=== PATIENT | female | born 1950 | race Caucasian/White ===

== ENCOUNTER → 2016-05-02 | Outpatient (CLI) | payer MEDICARE, OTHER ==
--- NOTE | 2016-05-02 12:29 | REP ---
Chest two views HISTORY: Bronchitis Comparison: 05/08/2013 The lungs are clear. The heart is normal in size. The pulmonary vasculature is normal in appearance. Degenerative change is present in the thoracic spine. IMPRESSION: No acute disease.
== END ==
LOC: M CLY 11:51
PROVIDERS: ATTEND Family Medicine
DX: J40 Bronchitis, not specified as acute or chronic (principal)
CPT/HCPCS: 71020; 94640; G0463

== ENCOUNTER → 2016-08-09 | Outpatient (REF) | payer MEDICARE, OTHER | LOC: M SFHCCLAY 08:25 | PROVIDERS: ATTEND Nurse Practitioner Family | DX: Z23 Encounter for immunization (principal); E11.9 Type 2 diabetes mellitus without complications; E78.4 Other hyperlipidemia ==

== ENCOUNTER → 2016-11-05 | Outpatient (REF) | payer MEDICARE, OTHER | LOC: M SFHCCLAY 12:00 | PROVIDERS: ATTEND Nurse Practitioner Family | DX: R19.7 Diarrhea, unspecified (principal) ==

== ENCOUNTER → 2017-01-16 | Outpatient (REF) | payer MEDICARE, OTHER | LOC: M SFHCCLAY 08:53 | PROVIDERS: ATTEND Nurse Practitioner Family | DX: E11.8 Type 2 diabetes mellitus with unspecified complications (principal); E78.4 Other hyperlipidemia ==

== ENCOUNTER → 2017-06-10 | Outpatient (REF) | payer MEDICARE, OTHER ==
[2017-06-10 17:26] LABS: ALBUMIN 3.5 GM/DL (3.2-5.2); ALBUMIN/GLOBULIN RATIO 0.85 (1.00-1.93); ALKALINE PHOSPHATASE 84 U/L (45-117); ALT/SGPT 31 U/L (12-78); ANION GAP 7 MEQ/L (8-16); AST/SGOT 20 U/L (7-37); BILIRUBIN,TOTAL 0.5 MG/DL (0.2-1.0); BLOOD UREA NITROGEN 14 MG/DL (7-18); CALCIUM LEVEL 9.5 MG/DL (8.8-10.2); CARBON DIOXIDE LEVEL 32 MEQ/L (21-32); CHLORIDE LEVEL 100 MEQ/L (98-107); CHOLESTEROL LEVEL 248 MG/DL (<200); CHOLESTEROL RISK RATIO 6.048 (<5); CREATININE FOR GFR 0.78 MG/DL (0.55-1.30); GLOMERULAR FILTRATION RATE > 60.0 (>45); GLUCOSE, FASTING 292 MG/DL (70-100); HDL CHOLESTEROL 41 MG/DL (>40); LDL CHOLESTEROL 172.6 MG/DL (<100); NON-HDL-C 207 MG/DL; POTASSIUM SERUM 4.2 MEQ/L (3.5-5.1); SODIUM LEVEL 139 MEQ/L (136-145); TOTAL PROTEIN 7.6 GM/DL (6.4-8.2); TRIGLYCERIDES LEVEL 172 MG/DL (<150)
[2017-06-10 17:39] LABS: TOTAL 25(OH) VITAMIN D 23.7 NG/ML (30.0-100.0)
[2017-06-10 17:52] LABS: ESTIMATED AVERAGE GLUCOSE 326 MG/DL (60-110)
[2017-06-10 19:13] LABS: MALB URINE SIEMENS 77.3 MG/L; MAU/CREAT RATIO 69.6 MCG/MG (0.0-30.0); TOTAL PROTEIN,RANDOM URINE 36.9 MG/DL (0.0-12.0)
[2017-06-10 19:16] LABS: HEMATOCRIT 42.2 % (36.0-47.0); MEAN CORPUSCULAR HGB CONC 30.8 g/dl (32.0-36.5); MEAN CORPUSCULAR VOLUME 90.9 fl (80.0-96.0); PLATELET COUNT, AUTOMATED 153 10^3/uL (150-450); RED BLOOD COUNT 4.64 10^6/uL (4.00-5.40); RED CELL DISTRIBUTION WIDTH 13.5 % (11.5-14.5)
== END ==
LOC: M SFHCCLAY 10:30
DX: I10 Essential (primary) hypertension (principal); E11.9 Type 2 diabetes mellitus without complications; E78.4 Other hyperlipidemia; Z13.21 Encounter for screening for nutritional disorder
CPT/HCPCS: 80053

== ENCOUNTER → 2017-10-01 | Outpatient (REF) | payer MEDICARE, OTHER ==
[2017-10-01 17:00] LABS: CHOLESTEROL LEVEL 260 MG/DL (<200); CHOLESTEROL RISK RATIO 7.027 (<5); ESTIMATED AVERAGE GLUCOSE 292 MG/DL (60-110); HDL CHOLESTEROL 37 MG/DL (>40); HEMOGLOBIN A1c 11.8 %; LDL CHOLESTEROL 184.6 MG/DL (<100); NON-HDL-C 223 MG/DL; TRIGLYCERIDES LEVEL 192 MG/DL (<150)
[2017-10-01 17:02] LABS: TOTAL 25(OH) VITAMIN D 18.1 NG/ML (30.0-100.0)
== END ==
LOC: M SFHCCLAY 12:10
DX: E11.8 Type 2 diabetes mellitus with unspecified complications (principal); I12.9 Hypertensive chronic kidney disease with stage 1 through stage 4 chronic kidney disease, or unspecified chronic kidney disease; E55.9 Vitamin D deficiency, unspecified; E66.9 Obesity, unspecified; Z68.33 Body mass index [BMI] 33.0-33.9, adult
CPT/HCPCS: 83036

== ENCOUNTER 2017-12-06 11:48 | Inpatient (IN) | payer MEDICARE, OTHER ==
[2017-12-06 12:33] LABS: BASO # 0.1 10^3/uL (0.0-0.2); BASO % 0.3 % (0.0-1.0); IMMATURE GRANULOCYTE % 0.7 % (0-3.0); LYMPH # 0.8 10^3/uL (1.5-4.5); LYMPH % 4.3 % (24.0-44.0); MEAN CORPUSCULAR HEMOGLOBIN 29.4 pg (27.0-33.0); MEAN CORPUSCULAR HGB CONC 32.5 g/dl (32.0-36.5); MEAN CORPUSCULAR VOLUME 90.5 fl (80.0-96.0); MONO # 1.2 10^3/uL (0.0-0.8); MONO % 6.2 % (0.0-5.0); NEUTROPHILS # 16.5 10^3/uL (1.8-7.7); NEUTROPHILS % 88.5 % (36.0-66.0); PLATELET COUNT, AUTOMATED 166 10^3/uL (150-450); RED BLOOD COUNT 4.42 10^6/uL (4.00-5.40); RED CELL DISTRIBUTION WIDTH 13.1 % (11.5-14.5); WHITE BLOOD COUNT 18.7 10^3/uL (4.0-10.0)
[2017-12-06 12:49] LABS: BEDSIDE GLUCOSE 211 MG/DL (80-115)
[2017-12-06 12:53] LABS: INR 1.09; PARTIAL THROMBOPLASTIN TIME 26.7 SECONDS (25.4-37.6); PROTHROMBIN TIME 14.2 SECONDS (12.1-14.4)
[2017-12-06 12:55] LABS: ALBUMIN 3.4 GM/DL (3.2-5.2); ALBUMIN/GLOBULIN RATIO 0.92 (1.00-1.93); ALKALINE PHOSPHATASE 75 U/L (45-117); ALT/SGPT 34 U/L (12-78); AMYLASE 19 U/L (25-115); ANION GAP 8 MEQ/L (8-16); AST/SGOT 34 U/L (7-37); BILIRUBIN,DIRECT 0.2 MG/DL (0.0-0.2); BILIRUBIN,TOTAL 0.8 MG/DL (0.2-1.0); BLOOD UREA NITROGEN 11 MG/DL (7-18); CALCIUM LEVEL 8.9 MG/DL (8.8-10.2); CARBON DIOXIDE LEVEL 29 MEQ/L (21-32); CHLORIDE LEVEL 106 MEQ/L (98-107); CK-MB VALUE MASS 9.7 NG/ML (<3.6); CPK CREATINE PHOSPHOKINASE 917 U/L (26-192); CREATININE FOR GFR 0.71 MG/DL (0.55-1.30); GLOMERULAR FILTRATION RATE > 60.0 (>45); GLUCOSE, FASTING 203 MG/DL (70-100); MB/CK RELATIVE INDEX 1.05 (< OR =4); POTASSIUM SERUM 3.4 MEQ/L (3.5-5.1); SODIUM LEVEL 143 MEQ/L (136-145); TOTAL PROTEIN 7.1 GM/DL (6.4-8.2); TROPONIN I < 0.02 NG/ML (< 0.10)
[2017-12-06] MEDS: ADACEL/BOOSTRIX VACCINE (DIPHTH/PERTUSS/ACELL/TETANUS)0.5ML SYR (90715) IM (12:59)
[2017-12-06] MEDS ORDERED: ISOVUE-370 76% 100ML VIAL (Q9967) As Ordered (13:22)
[2017-12-06 13:27] LABS: APPEARANCE, URINE HAZY (CLEAR); BACTERIA, URINE AUTO NEGATIVE (NEGATIVE); BILIRUBIN, URINE AUTO NEGATIVE (NEGATIVE); BLOOD, URINE BLOOD 2+ (NEGATIVE); COLOR, URINE YELLOW (YELLOW); GLUCOSE, URINE (UA) AUTO 2+ mg/dL (NEGATIVE); KETONE, URINE AUTO TRACE mg/dL (NEGATIVE); LEUKOCYTE ESTERASE, URINE AUTO NEGATIVE (NEGATIVE); MUCUS, URINE SMALL (NEGATIVE); NITRITE, URINE AUTO NEGATIVE (NEGATIVE); PROTEIN, URINE AUTO 2+ mg/dL (NEGATIVE); RBC, URINE AUTO 0 /HPF (0-3); SPECIFIC GRAVITY URINE AUTO 1.028 (1.002-1.035); SQUAMOUS EPITHELIAL CELL UR AU 1 /HPF (0-6); UROBILINOGEN, URINE AUTO 0.2 mg/dL (0.0-2.0); WBC, URINE AUTO 5 /HPF (0-3)
[2017-12-06] MEDS: ceFAZolin SOD 1 GM in D5W MINI-BAG PLUS 50 ML IV ×2 (15:10→21:29)
[2017-12-06] MEDS: POTASSIUM CHLORIDE 10 MEQ SR TABLET PO ×2 (15:10→16:00)
[2017-12-06] MEDS ORDERED: DEXTROSE 50% 50 ML SYRINGE IV (15:30)
[2017-12-06] MEDS ORDERED: GLUCAGON FOR INJ 1 MG VIAL (J1610) SC (15:30)
[2017-12-06] MEDS ORDERED: GLUCOSE 4 GM CHEW TABLET PO (15:30)
[2017-12-06 16:06] LABS: BEDSIDE GLUCOSE 179 MG/DL (80-115)
[2017-12-06] MEDS: ACETAMINOPHEN TAB 650MG DOSE (2X325MG) PO ×2 (17:21→23:58)
[2017-12-06] MEDS: ONDANSETRON 4MG/2ML VIAL (J2405) IV (17:47)
[2017-12-06 18:46] LABS: TROPONIN I 0.02 NG/ML (< 0.10)
[2017-12-06] MEDS: NS 1,000 ML IV (20:38)
[2017-12-06] MEDS: HumaLOG INSULIN (NovoLOG) PER UNIT SC (21:04)
[2017-12-06] MEDS: LEVEMIR (INSULIN DETEMIR) 1 UNITS/0.01ML SC (21:29)
[2017-12-06] MEDS: OMEPRAZOLE 20 MG CAP PO (21:30)
[2017-12-06 23:55] LABS: BEDSIDE GLUCOSE 205 MG/DL (80-115)
[2017-12-06] MEDS: ENOXAPARIN 80 MG/0.8 ML SYRINGE (J1650) SC (23:58)
[2017-12-07] MEDS: ceFAZolin SOD 1 GM in D5W MINI-BAG PLUS 50 ML IV ×2 (05:05→14:45)
[2017-12-07 06:04] LABS: HEMATOCRIT 37.9 % (36.0-47.0); HEMOGLOBIN 11.8 g/dl (12.0-15.5); MEAN CORPUSCULAR HEMOGLOBIN 29.1 pg (27.0-33.0); MEAN CORPUSCULAR HGB CONC 31.1 g/dl (32.0-36.5); MEAN CORPUSCULAR VOLUME 93.6 fl (80.0-96.0); PLATELET COUNT, AUTOMATED 153 10^3/uL (150-450); RED BLOOD COUNT 4.05 10^6/uL (4.00-5.40); RED CELL DISTRIBUTION WIDTH 13.3 % (11.5-14.5); WHITE BLOOD COUNT 17.6 10^3/uL (4.0-10.0)
[2017-12-07] MEDS: NS 1,000 ML IV (06:18)
[2017-12-07 06:26] LABS: ANION GAP 3 MEQ/L (8-16); BLOOD UREA NITROGEN 11 MG/DL (7-18); CALCIUM LEVEL 8.6 MG/DL (8.8-10.2); CARBON DIOXIDE LEVEL 34 MEQ/L (21-32); CHLORIDE LEVEL 107 MEQ/L (98-107); CPK CREATINE PHOSPHOKINASE 515 U/L (26-192); CREATININE FOR GFR 0.85 MG/DL (0.55-1.30); GLOMERULAR FILTRATION RATE > 60.0 (>45); GLUCOSE, FASTING 182 MG/DL (70-100); SODIUM LEVEL 144 MEQ/L (136-145)
[2017-12-07] MEDS ORDERED: ENOXAPARIN 40 MG/0.4 ML SYRINGE (J1650) SC (09:00)
[2017-12-07] MEDS: ASPIRIN 81 MG ENTERIC TAB PO (09:18)
[2017-12-07] MEDS: OMEPRAZOLE 20 MG CAP PO ×2 (09:18→20:37)
[2017-12-07] MEDS: HumaLOG INSULIN (NovoLOG) PER UNIT SC ×3 (09:18→18:17)
[2017-12-07] MEDS: ENOXAPARIN 40 MG/0.4 ML SYRINGE (J1650) SC (09:19)
[2017-12-07 12:02] LABS: BEDSIDE GLUCOSE 184 MG/DL (80-115)
[2017-12-07 18:08] LABS: BEDSIDE GLUCOSE 192 MG/DL (80-115)
[2017-12-07] MEDS: ACETAMINOPHEN TAB 650MG DOSE (2X325MG) PO (18:20)
[2017-12-07] MEDS ORDERED: SLF 3 ML SYR IV (19:00)
[2017-12-07 19:20] LABS: ERYTHROCYTE SEDIMENTATION RATE 41 mm/hr (0-30)
[2017-12-07 20:19] LABS: BEDSIDE GLUCOSE 198 MG/DL (80-115)
[2017-12-07] MEDS: LEVEMIR (INSULIN DETEMIR) 1 UNITS/0.01ML SC (20:37)
[2017-12-07] MEDS: SLF 3 ML SYR IV (20:37)
[2017-12-07] MEDS: CEFTAROLINE FOSAMIL 600 MG in D5W MINI-BAG PLUS 50 ML IV (20:37)
[2017-12-08] MEDS: ACETAMINOPHEN TAB 650MG DOSE (2X325MG) PO ×2 (00:42→04:42)
[2017-12-08] MEDS: SLF 3 ML SYR IV ×3 (04:42→20:47)
[2017-12-08 06:30] LABS: HEMATOCRIT 35.4 % (36.0-47.0); HEMOGLOBIN 10.7 g/dl (12.0-15.5); MEAN CORPUSCULAR HEMOGLOBIN 28.8 pg (27.0-33.0); MEAN CORPUSCULAR HGB CONC 30.2 g/dl (32.0-36.5); MEAN CORPUSCULAR VOLUME 95.4 fl (80.0-96.0); PLATELET COUNT, AUTOMATED 135 10^3/uL (150-450); RED BLOOD COUNT 3.71 10^6/uL (4.00-5.40); RED CELL DISTRIBUTION WIDTH 13.3 % (11.5-14.5); WHITE BLOOD COUNT 11.1 10^3/uL (4.0-10.0)
[2017-12-08 06:36] LABS: ANION GAP 3 MEQ/L (8-16); BLOOD UREA NITROGEN 11 MG/DL (7-18); CALCIUM LEVEL 8.2 MG/DL (8.8-10.2); CARBON DIOXIDE LEVEL 32 MEQ/L (21-32); CHLORIDE LEVEL 106 MEQ/L (98-107); CREATININE FOR GFR 0.61 MG/DL (0.55-1.30); GLOMERULAR FILTRATION RATE > 60.0 (>45); GLUCOSE, FASTING 204 MG/DL (70-100); POTASSIUM SERUM 3.9 MEQ/L (3.5-5.1); SODIUM LEVEL 141 MEQ/L (136-145)
[2017-12-08] MEDS: ASPIRIN 81 MG ENTERIC TAB PO (08:36)
[2017-12-08] MEDS: HumaLOG INSULIN (NovoLOG) PER UNIT SC ×3 (08:36→18:00)
[2017-12-08] MEDS: OMEPRAZOLE 20 MG CAP PO ×2 (08:37→20:47)
[2017-12-08] MEDS: CEFTAROLINE FOSAMIL 600 MG in D5W MINI-BAG PLUS 50 ML IV ×2 (08:37→20:45)
[2017-12-08] MEDS: ENOXAPARIN 40 MG/0.4 ML SYRINGE (J1650) SC (08:37)
[2017-12-08 11:42] LABS: BEDSIDE GLUCOSE 154 MG/DL (80-115)
[2017-12-08] MEDS: ACETAMINOPHEN 500 MG TAB PO ×2 (13:40→20:45)
[2017-12-08 16:42] LABS: BEDSIDE GLUCOSE 150 MG/DL (80-115)
[2017-12-08 20:41] LABS: BEDSIDE GLUCOSE 200 MG/DL (80-115)
[2017-12-08] MEDS: LEVEMIR (INSULIN DETEMIR) 1 UNITS/0.01ML SC (20:46)
[2017-12-09] MEDS: SLF 3 ML SYR IV ×3 (05:42→20:47)
[2017-12-09 05:50] LABS: HEMOGLOBIN 11.1 g/dl (12.0-15.5); MEAN CORPUSCULAR HEMOGLOBIN 29.1 pg (27.0-33.0); MEAN CORPUSCULAR HGB CONC 30.8 g/dl (32.0-36.5); MEAN CORPUSCULAR VOLUME 94.2 fl (80.0-96.0); PLATELET COUNT, AUTOMATED 152 10^3/uL (150-450); RED BLOOD COUNT 3.82 10^6/uL (4.00-5.40); WHITE BLOOD COUNT 6.3 10^3/uL (4.0-10.0)
[2017-12-09 06:22] LABS: ANION GAP 3 MEQ/L (8-16); BLOOD UREA NITROGEN 7 MG/DL (7-18); C REACTIVE PROTEIN QUANTITATIV 8.01 MG/DL (0.00-0.30); CALCIUM LEVEL 8.3 MG/DL (8.8-10.2); CARBON DIOXIDE LEVEL 35 MEQ/L (21-32); CHLORIDE LEVEL 106 MEQ/L (98-107); GLOMERULAR FILTRATION RATE > 60.0 (>45); GLUCOSE, FASTING 151 MG/DL (70-100); POTASSIUM SERUM 3.7 MEQ/L (3.5-5.1); SODIUM LEVEL 144 MEQ/L (136-145)
[2017-12-09 07:52] LABS: ERYTHROCYTE SEDIMENTATION RATE 70 mm/hr (0-30)
[2017-12-09] MEDS: HumaLOG INSULIN (NovoLOG) PER UNIT SC ×3 (08:47→17:04)
[2017-12-09] MEDS: ASPIRIN 81 MG ENTERIC TAB PO (08:47)
[2017-12-09] MEDS: CEFTAROLINE FOSAMIL 600 MG in D5W MINI-BAG PLUS 50 ML IV ×2 (08:47→20:47)
[2017-12-09] MEDS: OMEPRAZOLE 20 MG CAP PO ×2 (08:47→20:46)
[2017-12-09] MEDS: ENOXAPARIN 40 MG/0.4 ML SYRINGE (J1650) SC (08:47)
[2017-12-09] MEDS ORDERED: ALBUTEROL 90 MCG/ACT 8GM HFA INHALER INH (11:15)
[2017-12-09 12:13] LABS: BEDSIDE GLUCOSE 148 MG/DL (80-115)
[2017-12-09] MEDS: LISINOPRIL 5 MG TAB PO (12:18)
[2017-12-09] MEDS: ADVAIR HFA 230/21MCG INHALER INH ×2 (12:26→20:53)
[2017-12-09 16:33] LABS: BEDSIDE GLUCOSE 166 MG/DL (80-115)
[2017-12-09] MEDS: MIRALAX *UNIT DOSE* 17GM PACKET PO (17:04)
[2017-12-09] MEDS: SENOKOT S TAB PO (17:04)
[2017-12-09 20:32] LABS: BEDSIDE GLUCOSE 207 MG/DL (80-115)
[2017-12-09] MEDS: LEVEMIR (INSULIN DETEMIR) 1 UNITS/0.01ML SC (20:47)
[2017-12-10] MEDS: SLF 3 ML SYR IV ×3 (05:24→20:39)
[2017-12-10 06:21] LABS: HEMATOCRIT 34.3 % (36.0-47.0); HEMOGLOBIN 10.6 g/dl (12.0-15.5); MEAN CORPUSCULAR HEMOGLOBIN 28.7 pg (27.0-33.0); MEAN CORPUSCULAR HGB CONC 30.9 g/dl (32.0-36.5); PLATELET COUNT, AUTOMATED 165 10^3/uL (150-450); RED BLOOD COUNT 3.69 10^6/uL (4.00-5.40); RED CELL DISTRIBUTION WIDTH 12.8 % (11.5-14.5)
[2017-12-10 06:41] LABS: ANION GAP 5 MEQ/L (8-16); BLOOD UREA NITROGEN 8 MG/DL (7-18); CALCIUM LEVEL 8.6 MG/DL (8.8-10.2); CARBON DIOXIDE LEVEL 37 MEQ/L (21-32); CHLORIDE LEVEL 102 MEQ/L (98-107); CREATININE FOR GFR 0.56 MG/DL (0.55-1.30); GLOMERULAR FILTRATION RATE > 60.0 (>45); GLUCOSE, FASTING 153 MG/DL (70-100); POTASSIUM SERUM 3.6 MEQ/L (3.5-5.1); SODIUM LEVEL 144 MEQ/L (136-145)
[2017-12-10] MEDS: ADVAIR HFA 230/21MCG INHALER INH ×2 (07:17→21:38)
[2017-12-10] MEDS: CEFTAROLINE FOSAMIL 600 MG in D5W MINI-BAG PLUS 50 ML IV ×2 (08:21→20:38)
[2017-12-10] MEDS: HumaLOG INSULIN (NovoLOG) PER UNIT SC ×3 (08:21→17:03)
[2017-12-10] MEDS: ENOXAPARIN 40 MG/0.4 ML SYRINGE (J1650) SC (08:21)
[2017-12-10] MEDS: LISINOPRIL 5 MG TAB PO (08:22)
[2017-12-10] MEDS: ASPIRIN 81 MG ENTERIC TAB PO (08:22)
[2017-12-10] MEDS: OMEPRAZOLE 20 MG CAP PO ×2 (08:22→20:38)
[2017-12-10 11:41] LABS: BEDSIDE GLUCOSE 259 MG/DL (80-115)
[2017-12-10 16:40] LABS: BEDSIDE GLUCOSE 158 MG/DL (80-115)
[2017-12-10 20:30] LABS: BEDSIDE GLUCOSE 213 MG/DL (80-115)
[2017-12-10] MEDS: LEVEMIR (INSULIN DETEMIR) 1 UNITS/0.01ML SC (20:38)
[2017-12-10] MEDS: ACETAMINOPHEN 500 MG TAB PO (21:14)
[2017-12-11] MEDS: SLF 3 ML SYR IV ×3 (05:15→20:50)
[2017-12-11 06:04] LABS: HEMATOCRIT 34.3 % (36.0-47.0); HEMOGLOBIN 10.5 g/dl (12.0-15.5); MEAN CORPUSCULAR HEMOGLOBIN 28.4 pg (27.0-33.0); MEAN CORPUSCULAR HGB CONC 30.6 g/dl (32.0-36.5); MEAN CORPUSCULAR VOLUME 92.7 fl (80.0-96.0); PLATELET COUNT, AUTOMATED 163 10^3/uL (150-450); RED CELL DISTRIBUTION WIDTH 12.8 % (11.5-14.5); WHITE BLOOD COUNT 4.5 10^3/uL (4.0-10.0)
[2017-12-11 06:22] LABS: ANION GAP 3 MEQ/L (8-16); BLOOD UREA NITROGEN 11 MG/DL (7-18); CALCIUM LEVEL 8.6 MG/DL (8.8-10.2); CARBON DIOXIDE LEVEL 40 MEQ/L (21-32); CHLORIDE LEVEL 101 MEQ/L (98-107); CREATININE FOR GFR 0.68 MG/DL (0.55-1.30); GLOMERULAR FILTRATION RATE > 60.0 (>45); GLUCOSE, FASTING 161 MG/DL (70-100); POTASSIUM SERUM 3.7 MEQ/L (3.5-5.1); SODIUM LEVEL 144 MEQ/L (136-145)
[2017-12-11] MEDS: CEFTAROLINE FOSAMIL 600 MG in D5W MINI-BAG PLUS 50 ML IV (08:06)
[2017-12-11] MEDS: ASPIRIN 81 MG ENTERIC TAB PO (08:07)
[2017-12-11] MEDS: HumaLOG INSULIN (NovoLOG) PER UNIT SC ×3 (08:07→17:41)
[2017-12-11] MEDS: LISINOPRIL 5 MG TAB PO (08:07)
[2017-12-11] MEDS: OMEPRAZOLE 20 MG CAP PO ×2 (08:07→20:50)
[2017-12-11] MEDS: ENOXAPARIN 40 MG/0.4 ML SYRINGE (J1650) SC (08:07)
[2017-12-11] MEDS: ADVAIR HFA 230/21MCG INHALER INH ×2 (09:29→21:00)
[2017-12-11 12:13] LABS: BEDSIDE GLUCOSE 178 MG/DL (80-115)
[2017-12-11 16:50] LABS: BEDSIDE GLUCOSE 162 MG/DL (80-115)
[2017-12-11] MEDS: AUGMENTIN 875 MG TAB PO (20:50)
[2017-12-11] MEDS: LEVEMIR (INSULIN DETEMIR) 1 UNITS/0.01ML SC (20:50)
[2017-12-12] MEDS: SLF 3 ML SYR IV ×3 (05:02→20:12)
[2017-12-12 06:23] LABS: HEMATOCRIT 35.8 % (36.0-47.0); HEMOGLOBIN 10.9 g/dl (12.0-15.5); MEAN CORPUSCULAR HEMOGLOBIN 29.1 pg (27.0-33.0); MEAN CORPUSCULAR HGB CONC 30.4 g/dl (32.0-36.5); MEAN CORPUSCULAR VOLUME 95.5 fl (80.0-96.0); PLATELET COUNT, AUTOMATED 182 10^3/uL (150-450); RED BLOOD COUNT 3.75 10^6/uL (4.00-5.40); RED CELL DISTRIBUTION WIDTH 13.1 % (11.5-14.5); WHITE BLOOD COUNT 5.7 10^3/uL (4.0-10.0)
[2017-12-12 06:42] LABS: ANION GAP 4 MEQ/L (8-16); BLOOD UREA NITROGEN 10 MG/DL (7-18); CALCIUM LEVEL 8.9 MG/DL (8.8-10.2); CARBON DIOXIDE LEVEL 39 MEQ/L (21-32); CHLORIDE LEVEL 101 MEQ/L (98-107); CREATININE FOR GFR 0.68 MG/DL (0.55-1.30); GLOMERULAR FILTRATION RATE > 60.0 (>45); GLUCOSE, FASTING 153 MG/DL (70-100); POTASSIUM SERUM 4.2 MEQ/L (3.5-5.1); SODIUM LEVEL 144 MEQ/L (136-145)
[2017-12-12] MEDS: ADVAIR HFA 230/21MCG INHALER INH ×2 (08:04→20:55)
[2017-12-12] MEDS: ASPIRIN 81 MG ENTERIC TAB PO (08:27)
[2017-12-12] MEDS: LISINOPRIL 5 MG TAB PO (08:28)
[2017-12-12] MEDS: OMEPRAZOLE 20 MG CAP PO ×2 (08:28→20:11)
[2017-12-12] MEDS: HumaLOG INSULIN (NovoLOG) PER UNIT SC ×3 (08:28→17:30)
[2017-12-12] MEDS: AUGMENTIN 875 MG TAB PO ×2 (08:28→20:11)
[2017-12-12] MEDS: ENOXAPARIN 40 MG/0.4 ML SYRINGE (J1650) SC (08:29)
[2017-12-12] MEDS: ACETAMINOPHEN 500 MG TAB PO (09:22)
[2017-12-12 11:42] LABS: BEDSIDE GLUCOSE 198 MG/DL (80-115)
[2017-12-12] MEDS: hydroCHLOROthiazide 25 MG TAB PO (12:45)
[2017-12-12 16:37] LABS: BEDSIDE GLUCOSE 163 MG/DL (80-115)
[2017-12-12] MEDS: LEVEMIR (INSULIN DETEMIR) 1 UNITS/0.01ML SC (20:11)
[2017-12-12 20:21] LABS: BEDSIDE GLUCOSE 206 MG/DL (80-115)
[2017-12-13] MEDS: SLF 3 ML SYR IV ×2 (05:00→14:00)
[2017-12-13 06:19] LABS: HEMATOCRIT 34.9 % (36.0-47.0); HEMOGLOBIN 10.9 g/dl (12.0-15.5); MEAN CORPUSCULAR HGB CONC 31.2 g/dl (32.0-36.5); MEAN CORPUSCULAR VOLUME 92.8 fl (80.0-96.0); PLATELET COUNT, AUTOMATED 192 10^3/uL (150-450); RED BLOOD COUNT 3.76 10^6/uL (4.00-5.40); RED CELL DISTRIBUTION WIDTH 13.2 % (11.5-14.5); WHITE BLOOD COUNT 6.1 10^3/uL (4.0-10.0)
[2017-12-13 06:31] LABS: ANION GAP 5 MEQ/L (8-16); BLOOD UREA NITROGEN 12 MG/DL (7-18); CALCIUM LEVEL 8.8 MG/DL (8.8-10.2); CARBON DIOXIDE LEVEL 37 MEQ/L (21-32); CHLORIDE LEVEL 101 MEQ/L (98-107); CREATININE FOR GFR 0.68 MG/DL (0.55-1.30); GLOMERULAR FILTRATION RATE > 60.0 (>45); GLUCOSE, FASTING 158 MG/DL (70-100); POTASSIUM SERUM 3.7 MEQ/L (3.5-5.1); SODIUM LEVEL 143 MEQ/L (136-145)
[2017-12-13] MEDS: ADVAIR HFA 230/21MCG INHALER INH (07:43)
[2017-12-13] MEDS: hydroCHLOROthiazide 25 MG TAB PO (07:55)
[2017-12-13] MEDS: OMEPRAZOLE 20 MG CAP PO (07:55)
[2017-12-13] MEDS: AUGMENTIN 875 MG TAB PO (07:55)
[2017-12-13] MEDS: HumaLOG INSULIN (NovoLOG) PER UNIT SC ×3 (07:55→16:55)
[2017-12-13] MEDS: ENOXAPARIN 40 MG/0.4 ML SYRINGE (J1650) SC (07:55)
[2017-12-13] MEDS: LISINOPRIL 5 MG TAB PO (07:56)
[2017-12-13] MEDS: ASPIRIN 81 MG ENTERIC TAB PO (07:56)
[2017-12-13 11:37] LABS: BEDSIDE GLUCOSE 184 MG/DL (80-115)
[2017-12-13 16:43] LABS: BEDSIDE GLUCOSE 228 MG/DL (80-115)
== END 2017-12-13 17:00 | disposition home or self-care (01) | DRG 602 ==
LOC: M ED 11:48 → M ED INP 15:30 → M MSPAV 18:49
DX: L03.115 Cellulitis of right lower limb (principal); G93.41 Metabolic encephalopathy; M62.82 Rhabdomyolysis; E11.9 Type 2 diabetes mellitus without complications; R09.02 Hypoxemia; K21.9 Gastro-esophageal reflux disease without esophagitis; J44.9 Chronic obstructive pulmonary disease, unspecified; E55.9 Vitamin D deficiency, unspecified; Z79.82 Long term (current) use of aspirin; Z79.4 Long term (current) use of insulin; Z79.899 Other long term (current) drug therapy; Z87.891 Personal history of nicotine dependence

== ENCOUNTER → 2018-07-23 | Outpatient (REF) | payer MEDICARE, OTHER ==
[~2018-07-23] MED LIST: ADVA230A INH; AMOX875T2 PO; ASPI-222 PO; DRIS50003 PO; LANTINJ4 SC; LISI-542 PO; METF500T13 PO; OMEP40CA2 PO; VENTAER INH
[2018-07-23 11:42] LABS: HEMATOCRIT 39.2 % (36.0-47.0); MEAN CORPUSCULAR HEMOGLOBIN 26.8 pg (27.0-33.0); MEAN CORPUSCULAR HGB CONC 30.6 g/dl (32.0-36.5); MEAN CORPUSCULAR VOLUME 87.7 fl (80.0-96.0); PLATELET COUNT, AUTOMATED 165 10^3/uL (150-450); RED BLOOD COUNT 4.47 10^6/uL (4.00-5.40); WHITE BLOOD COUNT 5.8 10^3/uL (4.0-10.0)
[2018-07-23 11:47] LABS: ALBUMIN 3.4 GM/DL (3.2-5.2); ALT/SGPT 23 U/L (12-78); BILIRUBIN,TOTAL 0.4 MG/DL (0.2-1.0); BLOOD UREA NITROGEN 9 MG/DL (7-18); CALCIUM LEVEL 8.6 MG/DL (8.8-10.2); CARBON DIOXIDE LEVEL 34 MEQ/L (21-32); CHLORIDE LEVEL 106 MEQ/L (98-107); CHOLESTEROL LEVEL 252 MG/DL (<200); CREATININE FOR GFR 0.64 MG/DL (0.55-1.30); GLOMERULAR FILTRATION RATE > 60.0 (>39); GLUCOSE, FASTING 130 MG/DL (70-100); HDL CHOLESTEROL 40 MG/DL (>40); LDL CHOLESTEROL 181 MG/DL (<100); NON-HDL-C 212 MG/DL; POTASSIUM SERUM 4.1 MEQ/L (3.5-5.1); SODIUM LEVEL 144 MEQ/L (136-145); TOTAL PROTEIN 7.2 GM/DL (6.4-8.2); TRIGLYCERIDES LEVEL 153 MG/DL (<150)
[2018-07-23 11:55] LABS: TOTAL 25(OH) VITAMIN D 26.8 NG/ML (30.0-100.0)
[2018-07-23 12:05] LABS: HEMOGLOBIN A1c 8.5 %
== END ==
LOC: M SFHCCLAY 08:26
PROVIDERS: ATTEND Nurse Practitioner Family
DX: K21.9 Gastro-esophageal reflux disease without esophagitis (principal); I10 Essential (primary) hypertension; E11.8 Type 2 diabetes mellitus with unspecified complications; E78.49 Other hyperlipidemia; E55.9 Vitamin D deficiency, unspecified

== ENCOUNTER → 2018-10-15 | Outpatient (CLI) | payer MEDICARE, OTHER ==
--- NOTE | 2018-10-15 10:38 | REP ---
Skull series six views: Comparison is the CT of the brain dated 11/27/2017. There is no calvarial fracture. No radiopaque foreign body. The skull base and sella turcica are unremarkable. There are no calcifications. The study is otherwise unremarkable. The Impression: Essentially negative plain film study of the skull. Electronically Signed by Corby Madison MD 10/15/2018 10:30 A
--- NOTE | 2018-10-15 10:40 | REP ---
Cervical spine series: Eight views. History: Neck pain. Comparison CT study December 06, 2017. Findings: Lateral views of the cervical spine done in neutral, flexion, extension position show preserved vertebral body heights and normal. There is discogenic spurring anteriorly at C4-5 is C5-6 and C6-7. No subluxation or instability is seen. Prevertebral soft tissues are not swollen. AP and open mouth odontoid views demonstrate mild facet hypertrophy bilaterally in the mid cervical spine. There is some right sided carotid arterial vascular calcification. Oblique images demonstrate a left-sided uncovertebral spurs at C4-5 and mild right-sided spurring at the C3-4 C4-5 and C5-6. Impression: Degenerative spondylosis changes. Findings are unchanged from the CT study December 06, 2017.
== END ==
LOC: M CLY 08:41
PROVIDERS: ATTEND Nurse Practitioner Family
DX: M47.812 Spondylosis without myelopathy or radiculopathy, cervical region (principal); R51 Headache

== ENCOUNTER → 2018-11-17 | Outpatient (REF) | payer MEDICARE, OTHER ==
[2018-11-17 16:59] LABS: CHOLESTEROL RISK RATIO 4.853 (<5)
[2018-11-17 17:07] LABS: TOTAL 25(OH) VITAMIN D 47.6 NG/ML (30.0-100.0)
== END ==
LOC: M SFHCCLAY 09:48
PROVIDERS: ATTEND Nurse Practitioner Family
DX: E11.8 Type 2 diabetes mellitus with unspecified complications (principal); E78.49 Other hyperlipidemia; E55.9 Vitamin D deficiency, unspecified; Z79.899 Other long term (current) drug therapy

== ENCOUNTER → 2019-03-16 | Outpatient (REF) | payer MEDICARE, OTHER ==
[~2019-03-16] MED LIST changes: -ASPI-222 PO; +ASPI-527 PO; -OMEP40CA2 PO; +OMEP40CA97 PO
[2019-03-16 17:45] LABS: CHOLESTEROL RISK RATIO 3.975 (<5)
[2019-03-16 18:28] LABS: MALB URINE SIEMENS 42.1 MG/L; MAU/CREAT RATIO 26.6 MCG/MG (0.0-30.0)
[2019-03-16 19:21] LABS: HEMOGLOBIN A1c 7.1 %
== END ==
LOC: M SFHCCLAY 10:13
PROVIDERS: ATTEND Nurse Practitioner Family
DX: E11.8 Type 2 diabetes mellitus with unspecified complications (principal); E78.49 Other hyperlipidemia

== ENCOUNTER → 2019-07-08 | Outpatient (REF) | payer MEDICARE, OTHER ==
[2019-07-08 12:10] LABS: HEMATOCRIT 41.3 % (36.0-47.0); HEMOGLOBIN 12.9 g/dl (12.0-15.5); MEAN CORPUSCULAR HEMOGLOBIN 29.2 pg (27.0-33.0); MEAN CORPUSCULAR HGB CONC 31.2 g/dl (32.0-36.5); MEAN CORPUSCULAR VOLUME 93.4 fl (80.0-96.0); PLATELET COUNT, AUTOMATED 186 10^3/uL (150-450); RED BLOOD COUNT 4.42 10^6/uL (4.00-5.40); WHITE BLOOD COUNT 8.5 10^3/uL (4.0-10.0)
[2019-07-08 12:14] LABS: ALBUMIN 3.6 GM/DL (3.2-5.2); ALT/SGPT 20 U/L (12-78); BILIRUBIN,TOTAL 0.4 MG/DL (0.2-1.0); BLOOD UREA NITROGEN 14 MG/DL (7-18); CALCIUM LEVEL 9.2 MG/DL (8.8-10.2); CARBON DIOXIDE LEVEL 34 MEQ/L (21-32); CHLORIDE LEVEL 106 MEQ/L (98-107); CREATININE FOR GFR 0.65 MG/DL (0.55-1.30); GLOMERULAR FILTRATION RATE > 60.0 (>39); GLUCOSE, FASTING 124 MG/DL (70-100); POTASSIUM SERUM 3.5 MEQ/L (3.5-5.1); SODIUM LEVEL 144 MEQ/L (136-145); TOTAL PROTEIN 7.4 GM/DL (6.4-8.2)
[2019-07-08 12:20] LABS: TOTAL 25(OH) VITAMIN D 23.8 NG/ML (30.0-100.0)
[2019-07-08 14:26] LABS: HEMOGLOBIN A1c 7.6 %
== END ==
LOC: M SFHCCLAY 09:08
PROVIDERS: ATTEND Nurse Practitioner Family
DX: K21.9 Gastro-esophageal reflux disease without esophagitis (principal); I10 Essential (primary) hypertension; E11.8 Type 2 diabetes mellitus with unspecified complications; E55.9 Vitamin D deficiency, unspecified

== ENCOUNTER → 2019-11-03 | Outpatient (REF) | payer MEDICARE, OTHER ==
[2019-11-03 17:24] LABS: HEMOGLOBIN A1c 7.5 %
[2019-11-03 17:42] LABS: CHOLESTEROL RISK RATIO 5.292 (<5)
[2019-11-03 17:51] LABS: TOTAL 25(OH) VITAMIN D 24.4 NG/ML (30.0-100.0)
== END ==
LOC: M SFHCCLAY 10:42
PROVIDERS: ATTEND Nurse Practitioner Family
DX: E11.8 Type 2 diabetes mellitus with unspecified complications (principal); E78.5 Hyperlipidemia, unspecified; E55.9 Vitamin D deficiency, unspecified

== ENCOUNTER → 2020-02-09 | Outpatient (REF) | payer MEDICARE, OTHER ==
[2020-02-09 16:40] LABS: HEMOGLOBIN A1c 6.2 %
[2020-02-09 16:47] LABS: CHOLESTEROL RISK RATIO 5.581 (<5)
[2020-02-09 16:53] LABS: TOTAL 25(OH) VITAMIN D 43.6 NG/ML (30.0-100.0)
[2020-02-09 16:54] LABS: MAU/CREAT RATIO 57.3 MCG/MG (0.0-30.0)
== END ==
LOC: M SFHCCLAY 10:47
PROVIDERS: ATTEND Nurse Practitioner Family
DX: E11.8 Type 2 diabetes mellitus with unspecified complications (principal); E78.5 Hyperlipidemia, unspecified; E55.9 Vitamin D deficiency, unspecified
CPT/HCPCS: 80061; 82043; 82306; 83036; G0463

== ENCOUNTER → 2020-09-22 | Outpatient (REF) | payer MEDICARE, OTHER ==
[~2020-09-22] MED LIST changes: -LISI-542 PO; +LISI-898 PO
[2020-09-23 12:11] LABS: HEMATOCRIT 42.7 % (36.0-47.0); MEAN CORPUSCULAR HEMOGLOBIN 28.3 pg (27.0-33.0); MEAN CORPUSCULAR HGB CONC 30.4 g/dl (32.0-36.5); MEAN CORPUSCULAR VOLUME 92.8 fl (80.0-96.0); PLATELET COUNT, AUTOMATED 163 10^3/uL (150-450); WHITE BLOOD COUNT 6.9 10^3/uL (4.0-10.0)
[2020-09-23 12:51] LABS: ALBUMIN 3.6 GM/DL (3.2-5.2); ALT/SGPT 25 U/L (12-78); BILIRUBIN,TOTAL 0.4 MG/DL (0.2-1.0); BLOOD UREA NITROGEN 13 MG/DL (7-18); CALCIUM LEVEL 9.2 MG/DL (8.8-10.2); CARBON DIOXIDE LEVEL 34 MEQ/L (21-32); CHLORIDE LEVEL 108 MEQ/L (98-107); CHOLESTEROL LEVEL 235 MG/DL (<200); CHOLESTEROL RISK RATIO 5.875 (<5); CREATININE FOR GFR 0.64 MG/DL (0.55-1.30); GLOMERULAR FILTRATION RATE > 60.0 (>39); GLUCOSE, FASTING 63 MG/DL (70-100); HDL CHOLESTEROL 40 MG/DL (>40); LDL CHOLESTEROL 163 MG/DL (<100); NON-HDL-C 195 MG/DL; POTASSIUM SERUM 4.9 MEQ/L (3.5-5.1); SODIUM LEVEL 145 MEQ/L (136-145); TOTAL 25(OH) VITAMIN D 32.2 NG/ML (30.0-100.0); TOTAL PROTEIN 7.2 GM/DL (6.4-8.2); TRIGLYCERIDES LEVEL 162 MG/DL (<150)
[2020-09-23 13:21] LABS: HEMOGLOBIN A1c 5.6 %
== END ==
LOC: M SFHCCLAY 14:08
PROVIDERS: ATTEND Nurse Practitioner Family
DX: K21.9 Gastro-esophageal reflux disease without esophagitis (principal); E78.5 Hyperlipidemia, unspecified; E11.8 Type 2 diabetes mellitus with unspecified complications; E55.9 Vitamin D deficiency, unspecified
CPT/HCPCS: 80053; 80061; 82306; 83036; 85027; G0463

== ENCOUNTER → 2021-05-04 | Outpatient (REF) | payer MEDICARE, OTHER ==
[~2021-05-04] MED LIST changes: -LISI-898 PO; +LISI5TAB11 PO; +OMEP40CA4 PO; -OMEP40CA97 PO
[2021-05-05 11:58] LABS: BASO # 0.1 10^3/uL (0.0-0.2); BASO % 0.9 % (0.0-1.0); EOS # 0.1 10^3/uL (0.0-0.5); EOS % 1.5 % (0.0-3.0); HEMATOCRIT 38.1 % (36.0-47.0); HEMOGLOBIN 11.8 g/dl (12.0-15.5); LYMPH # 1.2 10^3/uL (1.5-5.0); LYMPH % 14.9 % (24.0-44.0); MEAN CORPUSCULAR HEMOGLOBIN 28.5 pg (27.0-33.0); MONO # 0.4 10^3/uL (0.0-0.8); MONO % 5.3 % (2.0-8.0); NEUTROPHILS # 6.1 10^3/uL (1.5-8.5); NEUTROPHILS % 76.5 % (36.0-66.0); PLATELET COUNT, AUTOMATED 239 10^3/uL (150-450); RED BLOOD COUNT 4.14 10^6/uL (4.00-5.40)
[2021-05-05 12:17] LABS: HEMOGLOBIN A1c 6.7 %
[2021-05-05 12:32] LABS: ALBUMIN 3.3 GM/DL (3.2-5.2); ALT/SGPT 19 U/L (12-78); BILIRUBIN,TOTAL 0.1 MG/DL (0.2-1.0); BLOOD UREA NITROGEN 12 MG/DL (7-18); CALCIUM LEVEL 8.9 MG/DL (8.8-10.2); CARBON DIOXIDE LEVEL 34 MEQ/L (21-32); CHLORIDE LEVEL 106 MEQ/L (98-107); CHOLESTEROL LEVEL 250 MG/DL (<200); CHOLESTEROL RISK RATIO 6.756 (<5); CREATININE FOR GFR 0.76 MG/DL (0.55-1.30); FREE T4 1.03 NG/DL (0.76-1.46); GLOMERULAR FILTRATION RATE > 60.0 (>39); GLUCOSE, FASTING 173 MG/DL (70-100); HDL CHOLESTEROL 37 MG/DL (>40); LDL CHOLESTEROL 152 MG/DL (<100); NON-HDL-C 213 MG/DL; POTASSIUM SERUM 4.9 MEQ/L (3.5-5.1); SODIUM LEVEL 143 MEQ/L (136-145); TOTAL PROTEIN 7.4 GM/DL (6.4-8.2); TRIGLYCERIDES LEVEL 304 MG/DL (<150)
== END ==
LOC: M SFHCCLAY 14:46
PROVIDERS: ATTEND Nurse Practitioner Family
DX: E11.8 Type 2 diabetes mellitus with unspecified complications (principal); I87.2 Venous insufficiency (chronic) (peripheral); I10 Essential (primary) hypertension
CPT/HCPCS: 80053; 80061; 83036; 84439; 84443; 85025; G0463

== ENCOUNTER → 2021-06-06 | Outpatient (CLI) | payer MEDICARE, OTHER | LOC: M CLY 14:02 | PROVIDERS: ATTEND Nurse Practitioner Family | DX: R05.9 Cough, unspecified (principal) ==

== ENCOUNTER → 2021-06-06 | Outpatient (REF) | payer MEDICARE, OTHER ==
[2021-06-06 16:17] LABS: BASO % 0.6 % (0.0-1.0); EOS % 0.4 % (0.0-3.0); HEMATOCRIT 37.3 % (36.0-47.0); HEMOGLOBIN 11.4 g/dl (12.0-15.5); LYMPH # 1.2 10^3/uL (1.5-5.0); LYMPH % 23.8 % (24.0-44.0); MEAN CORPUSCULAR HEMOGLOBIN 27.9 pg (27.0-33.0); MEAN CORPUSCULAR HGB CONC 30.6 g/dl (32.0-36.5); MEAN CORPUSCULAR VOLUME 91.2 fl (80.0-96.0); MONO # 0.5 10^3/uL (0.0-0.8); MONO % 10.3 % (2.0-8.0); NEUTROPHILS # 3.2 10^3/uL (1.5-8.5); NEUTROPHILS % 64.1 % (36.0-66.0); PLATELET COUNT, AUTOMATED 169 10^3/uL (150-450); RED BLOOD COUNT 4.09 10^6/uL (4.00-5.40)
[2021-06-06 16:39] LABS: ALBUMIN 3.5 GM/DL (3.2-5.2); BILIRUBIN,TOTAL 0.3 MG/DL (0.2-1.0); CALCIUM LEVEL 8.6 MG/DL (8.8-10.2); CREATININE FOR GFR 1.01 MG/DL (0.55-1.30); GLOMERULAR FILTRATION RATE 57.2 (>39); POTASSIUM SERUM 3.5 MEQ/L (3.5-5.1); TOTAL PROTEIN 7.5 GM/DL (6.4-8.2)
== END ==
LOC: M SFHCCLAY 15:22
PROVIDERS: ATTEND Nurse Practitioner Family
DX: R05.8 Other specified cough (principal)